=== PATIENT | female | born 1945 ===

== ENCOUNTER 2022-12-21 11:45 | Outpatient (CLI) | payer MEDICARE, OTHER, SELFPAY ==
[2022-12-21 12:31] LABS: Hematocrit 40.9 % (37.0-47.0); Hemoglobin 13.4 g/dL (12.0-15.0)
--- NOTE | 2022-12-21 12:31 | ECG_ITS ---
Measurements Intervals [place] Rate: 81 P: 27 ND: 178 QRS: -34 QRSD: 109 T: 7 QT: 364 QTc: 424 Interpretive Statements SINUS RHYTHM LEFT ANTERIOR HEMIBLOCK LOW QRS VOLTAGE IN PRECORDIAL LEADS [QRS DEFLECTION < 1.0 mV IN CHEST LEADS] ABNORMAL ECG NO PREVIOUS ECG AVAILABLE FOR COMPARISON Electronically Signed On 12-21-2022 13:38:57 CDT by Dank Beard M.D.
[2022-12-21 12:42] LABS: Hemoglobin A1C 5.7 % (<5.7)
== END 2022-12-21 11:46 | disposition home or self-care (01) ==
PROVIDERS: PCP Internal Medicine; Visit Provider Orthopaedic Surgery
DX: I25.10 Atherosclerotic heart disease of native coronary artery without angina pectoris (principal); M17.12 Unilateral primary osteoarthritis, left knee; E78.5 Hyperlipidemia, unspecified
CPT/HCPCS: 36415; 83036; 85014; 85018; 93005

== ENCOUNTER 2023-08-30 12:42 | Outpatient (CLI) | payer MEDICARE, OTHER, SELFPAY ==
--- NOTE | ~2023-08-30 | XR_ITS ---
EXAMINATION: XR hip RT 2V w AP pelvis INDICATION: Right hip pain TECHNIQUE: AP view the pelvis and two views of the right hip are obtained. COMPARISON: None available FINDINGS: Bone alignment is normal. There is no fracture. There is mild osteoarthritis of the hips. IMPRESSION: 1. Mild osteoarthritis of the hips. Reviewed, dictated and finalized at location B. [employer]
== END 2023-08-30 12:43 | disposition home or self-care (01) ==
PROVIDERS: PCP Internal Medicine; Visit Provider Orthopaedic Surgery
DX: M16.11 Unilateral primary osteoarthritis, right hip (principal)
CPT/HCPCS: 73502